=== PATIENT | male | born 1990 | race African-American/Black ===

== ENCOUNTER 2020-05-21 17:21 | Emergency (ER) | payer OTHER ==
[2020-05-21] MEDS ORDERED: Vancomycin 1 GM/200 ML BAG ONE (17:56)
[2020-05-21] MEDS ORDERED: Ketorolac Tromethamine 30 MG/ML VIAL ONE (17:57)
[2020-05-21] MEDS ORDERED: Morphine 4 MG/ML VIAL ONE ×2 (17:57→17:58)
[2020-05-21] MEDS ORDERED: Cefepime 2 GM VIAL ONE ×2 (17:58→18:02)
[2020-05-21 18:27] LABS: Hemoglobin 12.5 g/dL (14.0-18.0); Mean Corpuscular HGB CONC 31.4 g/dL (32.0-36.0); Mean Corpuscular Hemoglobin 25.8 pg (27.0-31.0); Mean Corpuscular Volume 82.2 fL (78.0-98.0); Mean Platelet Volume 6.3 fL (7.4-10.4); Platelet Count 526 thou/uL (130-400); RBC Distribution Width 14.4 % (11.5-14.5); Red Blood Cell (RBC) Count 4.85 mill/uL (4.70-6.10); White Blood Cell (WBC) Count 24.5 thou/uL (4.8-10.8)
--- NOTE | 2020-05-21 18:31 | RAD ---
Exam: Chest one view HISTORY:Pain. Comparison: 04/20/2019 FINDINGS: Cardiac silhouette: Normal Aorta: Unremarkable Pulmonary vessels: Normal Costophrenic angles: Clear LUNGS: No masses or consolidation. Probable 0.5 cm calcified granuloma in the right midlung, better d efined in the current exam. Pneumothorax: None Osseous abnormalities: None IMPRESSION: No acute cardiopulmonary process.
[2020-05-21 18:37] LABS: Band 4 % (5-11); Hypochromia SLIGHT = 6-15 cells (100X) (0-5/hpf); Lymphocytes 14 % (21-51); MDiff Complete? YES; Metamyelocyte 1 % (0-0); Monocytes 3 % (0-10); Neutrophil 78 % (42-75); Platelet Morphology Comment Appears Increased; Polychromasia SLIGHT = 2-3 cells (100X) (0-2/hpf)
[2020-05-21 18:55] LABS: ALT (SGPT) 15 U/L (8-55); AST (SGOT) 18 U/L (5-34); Albumin 3.4 g/dL (3.5-5.0); Alkaline Phosphatase 170 U/L (40-110); Anion Gap 16 mmol/L (10-20); BUN (Urea Nitrogen) 8 mg/dL (8.9-20.6); Bilirubin, Total 0.3 mg/dL (0.2-1.2); CK (CPK) 99 U/L (30-200); Calc. Creatinine Clearance 0 mL/min (70-130); Calcium 9.1 mg/dL (7.8-10.44); Carbon Dioxide 23 mmol/L (22-29); Chloride 99 mmol/L (98-107); Estimated GFR-MDRD Greater than 90; Globulin 5.9 g/dL (2.4-3.5); Glucose 111 mg/dL (70-105); Lipase 13 U/L (8-78); Potassium 3.4 mmol/L (3.5-5.1); Protein, Total 9.3 g/dL (6.0-8.3); Sodium 135 mmol/L (136-145)
[2020-05-21 21:22] LABS: Lactic Acid 1.2 mmol/L (0.5-2.2)
[2020-05-22 16:27] LABS: SARS-CoV-2 MS2 Positive; SARS-CoV-2 N Gene Negative; SARS-CoV-2 S Gene Negative; SARS-CoV-2 by NAA Not Detected (NotDetected); SARS-CoV-2 orf1ab Negative
== END 2020-05-22 00:23 | disposition short-term general hospital (02) ==
LOC: ERS 17:21
DX: L70.9 Acne, unspecified (principal)
CPT/HCPCS: 36415; 71045; 80053; 82550; 83605; 83690; 85025; 87040; 87635; 93005; 96365; 96366; 96367; 96375; J0692; J1885; J2270; J3370; U0003

== ENCOUNTER 2020-08-05 18:23 | Inpatient (IN) | payer OTHER ==
[2020-08-05] MEDS ORDERED: Acetaminophen 325 MG TAB PO PRN (19:45)
[2020-08-05] MEDS ORDERED: Sodium Chloride 0.9% 1,000 ML IV SCH ×2 (19:45→20:45)
[2020-08-05] MEDS ORDERED: Ondansetron ODT 4 MG TAB SL PRN (19:45)
[2020-08-05] MEDS ORDERED: Ondansetron PF 4 MG/2 ML Vial IVP PRN (19:45)
[2020-08-05] MEDS ORDERED: Vancomycin 1 GM in Premix Bag 1 BAG IVPB SCH (21:00)
[2020-08-05] MEDS: Nicotine 14 MG PATCH TD SCH ×2 (21:29→21:33)
[2020-08-05] MEDS: Morphine 4 MG/ML VIAL SLOW IVP PRN (21:29)
[2020-08-05] MEDS: Sodium Chloride 0.9% 1,000 ML IV SCH ×2 (21:31→23:19)
[2020-08-05] MEDS ORDERED: Cefepime 2 GM in Sodium Chloride 0.9% 100 ML IVPB SCH (22:00)
[2020-08-05] MEDS: Cefepime 2 GM in Sodium Chloride 0.9% 100 ML IVPB SCH (23:19)
--- NOTE | 2020-08-06 01:50 | PDOC.HHP ---
Hospitalist HPI - History of Present Illness History of Present Illness: ADMISSION DATE: 08/05/2020 TIME OF ASSESSMENT: 2099 PRIMARY CARE PHYSICIAN: Zee CHIEF COMPLAINT:painful sores HPI: Patient is a 29-year-old male past medical history significant for hypertension, hydradenitis suppurative, and schizophrenia. He presents to the ER for 3 days of worsening pain in his gluteus area was acute on chronic abscesses. He was borderline hypotensive and tachycardic upon arrival to ER. Patient recently been admitted for the same diagnosis earlier this month. Dermatology and infectious disease were consulted and started him on long-term antibiotics. He has not been compliant with his antibiotics recently and the sores have worsened. ED COURSE: Vital Signs: Blood pressure 107/57, respiratory rate 26, pulse 123, temp 98.7 oral, O2 sat 97% on room air Today in the ER they completed lab work, blood cultures, medication administration. Today they administered normal saline 2 L, Zofran 4 mg IV, morphine 4 mg IV x2 doses, vancomycin 1 g IV, cefepime 2 g IV. PAST MEDICAL HISTORY: Hydradenitis suppurative, bipolar, schizophrenic, ADD, hypertension PAST SURGICAL HISTORY: I&D of multiple abscesses SOCIAL HISTORY: Patient lives at home with his mother and brother. Patient denies alcohol or drugs. He states that he smokes occasionally when he has a bad flareup. FAMILY HISTORY: Mother and 4 siblings have hydradenitis also. Patient has 29 siblings, 10 of which are full siblings. ALLERGIES: No known drug allergies CURRENT MEDICATIONS: Mobic 7.5 mg p.o. daily Gabapentin 300 mg p.o. daily Hospitalist ROS - Review of Systems Skin: reports: lesions All other systems reviewed; all pertinent +/- noted in HPI/Subj - Medication Medications: Active Medications Generic Name Dose Route Start Last Admin Trade Name Freq PRN Reason Stop Dose Admin Cefepime HCl 2 gm/ Sodium 100 mls @ 200 mls/hr 08/05/20 23:00 08/05/20 23:19 Chloride IVPB 100 mls Q8H ROHAN Administration Sodium Chloride 1,000 mls @ 100 mls/hr 08/05/20 21:00 08/05/20 23:19 Normal Saline 0.9% IV 1,000 mls .Q10H ROHAN Administration Morphine Sulfate 4 mg 08/05/20 20:53 08/05/20 21:29 Morphine 4 Mg/Ml Vial SLOW IVP 4 mg Q4H PRN Administration Pain Nicotine 14 mg 08/05/20 20:45 08/05/20 21:33 Nicotine 14 Mg Patch TD Not Given Q24HR ROHAN - Exam General Appearance: NAD, awake alert Eye: PERRL Heart: RRR, no murmur, no gallops, no rubs, normal peripheral pulses Respiratory: CTAB, no wheezes, no rales, no ronchi, normal chest expansion Gastrointestinal: soft, non-tender, non-distended, normal bowel sounds Extremities: no edema Skin - other findings: dried skin lesions on chest, drainage from groin Psychiatric: normal affect, normal behavior, A&O x 3 Hospitalist H&P A/P - Plan Plan: Sepsis Repeat lactic acid, initial was 3.0 Continue IV fluid and IV antibiotics Await blood culture results from [facility] Continue to monitor vital signs Hidradenitis suppurativa exacerbation Continue IV antibiotics Wound care consultation Pain control Leukocytosisdue to worsening HS WBC count of 26.6 We will repeat labs in a.m. Remains afebrile at this time Tobacco abuse Nicotine patch available Schizophrenia/bipolar Restart home medications once reconciled VTE prophylaxis in place CODE STATUS: Full Surrogate decision maker is his mother Patient care been discussed with Dr. Zuñiga
[2020-08-06] MEDS: Vancomycin 1 GM in Premix Bag 1 BAG IVPB SCH ×2 (03:07→15:10)
[2020-08-06 03:11] LABS: Hemoglobin 10.4 g/dL (14.0-18.0); Mean Corpuscular HGB CONC 31.8 g/dL (32.0-36.0); Mean Corpuscular Hemoglobin 26.5 pg (27.0-31.0); Mean Corpuscular Volume 83.3 fL (78.0-98.0); Mean Platelet Volume 6.1 fL (7.4-10.4); Platelet Count 542 thou/uL (130-400); RBC Distribution Width 14.7 % (11.5-14.5); Red Blood Cell (RBC) Count 3.92 mill/uL (4.70-6.10); White Blood Cell (WBC) Count 22.5 thou/uL (4.8-10.8)
[2020-08-06] MEDS: Morphine 4 MG/ML VIAL SLOW IVP PRN ×4 (03:31→21:46)
[2020-08-06 03:55] LABS: Band 1 % (5-11); Eosinophils 2 % (0-10); Lymphocytes 20 % (21-51); MDiff Complete? YES; Monocytes 5 % (0-10); Neutrophil 72 % (42-75)
[2020-08-06 04:12] LABS: ALT (SGPT) 15 U/L (8-55); AST (SGOT) 17 U/L (5-34); Albumin 2.5 g/dL (3.5-5.0); Alkaline Phosphatase 227 U/L (40-110); Anion Gap 19 mmol/L (10-20); BUN (Urea Nitrogen) 11 mg/dL (8.9-20.6); Bilirubin, Total 0.3 mg/dL (0.2-1.2); Calc. Creatinine Clearance 141 mL/min (70-130); Calcium 8.5 mg/dL (7.8-10.44); Carbon Dioxide 17 mmol/L (22-29); Chloride 104 mmol/L (98-107); Globulin 6.2 g/dL (2.4-3.5); Glucose 101 mg/dL (70-105); Potassium 4.6 mmol/L (3.5-5.1); Protein, Total 8.7 g/dL (6.0-8.3); Sodium 135 mmol/L (136-145)
[2020-08-06] MEDS: Cefepime 2 GM in Sodium Chloride 0.9% 100 ML IVPB SCH ×3 (06:25→23:30)
[2020-08-06] MEDS: Sodium Chloride 0.9% 1,000 ML IV SCH ×2 (08:57→16:59)
[2020-08-06] MEDS: Gabapentin 300 MG CAP PO SCH ×2 (08:57→21:45)
[2020-08-06] MEDS: Meloxicam 7.5 MG TAB PO SCH ×2 (08:58→21:45)
[2020-08-06] MEDS ORDERED: Gabapentin 300 MG CAP PO SCH (09:00)
[2020-08-06 14:10] VITALS: BMI 22.2
--- NOTE | 2020-08-06 17:37 | PDOC.HOSPP ---
- Subjective Encounter Date: 08/06/20 Encounter Time: 10:00 Subjective: F/u: hidradenitis The patient is seen for follow up of HS. I saw him during his last admission, he was discharged on clindamycin and rifampin. He states he took these antibiotics but went to the ER two more times for worsening pain and discharge. After calling [facility], which is pharmacy I sent his medicines two, they stated that he never picked up his clindamycin and rifampin. The patient states he "forgot." He states he took something else that he had in his house instead. He also states he never saw the construction carpenters helper as scheduled because his mom was unable to drive him to [place] On 07/30, patient had gone to [place] [facility] and was prescribed clindamycin which he has been taking since 07/30. His last dose taking it was two days ago. Currently the patient has worsening wounds on his chest which are foul smelling. He also has pain with walking. He states he did not see the construction carpenters helper - Objective Vital Signs & Weight: Vital Signs (12 hours) Temp Pulse Resp BP Pulse Ox 08/06/20 16:00 99.3 F 85 14 106/71 96 08/06/20 12:00 99 08/06/20 11:59 100.2 F H 94 14 109/73 99 08/06/20 08:00 99.3 F 96 14 121/73 96 Weight Admit Weight 150 lb Weight 159 lb 6.4 oz I&O: 08/05/20 08/06/20 08/07/20 06:59 06:59 06:59 Output Total 1100 Balance -1100 Result Diagrams: 08/06/20 Unknown 08/06/20 Unknown Hospitalist ROS - Review of Systems Constitutional: denies: fever, chills - Medication Medications: Active Medications Generic Name Dose Route Start Last Admin Trade Name Freq PRN Reason Stop Dose Admin Gabapentin 300 mg 08/06/20 09:00 08/06/20 08:57 Gabapentin 300 Mg Cap PO 300 mg QAM ROHAN Administration Vancomycin HCl 1 gm/ Device 200 mls @ 200 mls/hr 08/06/20 03:00 08/06/20 15:10 IVPB 200 mls Q12H ROHAN Administration Cefepime HCl 2 gm/ Sodium 100 mls @ 200 mls/hr 08/05/20 23:00 08/06/20 15:08 Chloride IVPB 100 mls Q8H ROHAN Administration Sodium Chloride 1,000 mls @ 100 mls/hr 08/05/20 21:00 08/06/20 16:59 Normal Saline 0.9% IV Not Given .Q10H ROHAN Meloxicam 22.5 mg 08/06/20 09:00 08/06/20 08:58 Meloxicam 7.5 Mg Tab PO 22.5 mg QAM ROHAN Administration Morphine Sulfate 4 mg 08/05/20 20:53 08/06/20 16:59 Morphine 4 Mg/Ml Vial SLOW IVP 4 mg Q4H PRN Administration Pain Nicotine 14 mg 08/05/20 20:45 08/05/20 21:33 Nicotine 14 Mg Patch TD Not Given Q24HR ROHAN - Exam General Appearance: NAD, awake alert Eye: PERRL, anicteric sclera ENT: normocephalic atraumatic, no oropharyngeal lesions Neck: no JVD Heart: RRR, no murmur, no gallops, no rubs Respiratory: CTAB, no wheezes, no rales, no ronchi Gastrointestinal: soft, non-tender, non-distended, normal bowel sounds, no splenomegaly Extremities: no cyanosis, no clubbing, no edema Skin: normal turgor, no lesions, no rashes Skin - other findings: extensive HS lesions, but purulent ones noted on the chest, foul smelling Musculoskeletal: normal tone, normal strength, no muscle wasting Psychiatric: normal affect, normal behavior, A&O x 3, oriented to person Hosp A/P - Plan Consults: other 29-year-old male presented to the hospital with hidradenitis suppurativa exacerbation. Is recently discharged from the hospital on 07/24 and did not machine pecan picker his prescriptions as prescribed. Hidradenitis suppurativa exacerbation - from noncompliance - was recently discharged on clindamycin and rifampin 07/24 and topical clindamycin but did not machine pecan picker his medicines. He resumed clindamycin on 07/30 - WBC is 22.5. Will continue vanc, cefepime for now. Recheck wound culture - will likely need to be on humira again upon discharge. Will place PT order Leukocytosis- due to worsening HS - WBC 22, will repeat CBC tomorrow after antibiotics Schizophrenia/Bipolar - continue abilify
[2020-08-06] MEDS ORDERED: CLINDAMYCIN 1% TOP SCH (21:00)
[2020-08-06] MEDS: Nicotine 14 MG PATCH TD SCH (21:50)
[2020-08-07] MEDS: Sodium Chloride 0.9% 1,000 ML IV SCH ×3 (02:09→23:12)
[2020-08-07] MEDS: Vancomycin 1 GM in Premix Bag 1 BAG IVPB SCH ×3 (02:09→22:21)
[2020-08-07 05:52] LABS: Anion Gap 14 mmol/L (10-20); BUN (Urea Nitrogen) 7 mg/dL (8.9-20.6); Calc. Creatinine Clearance 161 mL/min (70-130); Calcium 8.6 mg/dL (7.8-10.44); Carbon Dioxide 23 mmol/L (22-29); Chloride 102 mmol/L (98-107); Glucose 82 mg/dL (70-105); Sodium 135 mmol/L (136-145)
[2020-08-07] MEDS: Cefepime 2 GM in Sodium Chloride 0.9% 100 ML IVPB SCH ×3 (06:50→23:12)
[2020-08-07] MEDS: Morphine 4 MG/ML VIAL SLOW IVP PRN ×5 (06:53→23:12)
[2020-08-07 07:03] LABS: Band 12 % (5-11); Hemoglobin 9.6 g/dL (14.0-18.0); Lymphocytes 10 % (21-51); MDiff Complete? YES; Mean Corpuscular HGB CONC 32.2 g/dL (32.0-36.0); Mean Corpuscular Volume 83.8 fL (78.0-98.0); Mean Platelet Volume 6.1 fL (7.4-10.4); Monocytes 5 % (0-10); Neutrophil 73 % (42-75); Platelet Count 495 thou/uL (130-400); RBC Distribution Width 14.5 % (11.5-14.5); Red Blood Cell (RBC) Count 3.56 mill/uL (4.70-6.10); White Blood Cell (WBC) Count 24.7 thou/uL (4.8-10.8)
[2020-08-07] MEDS: Meloxicam 7.5 MG TAB PO SCH ×2 (09:43→20:21)
[2020-08-07] MEDS: Gabapentin 300 MG CAP PO SCH ×2 (09:44→20:21)
[2020-08-07 14:55] LABS: Vancomycin, Trough 6.8 ug/mL
--- NOTE | 2020-08-07 14:58 | PDOC.HOSPP ---
- Subjective Encounter Date: 08/07/20 Encounter Time: 10:00 Subjective: F/u : hidradenitis The patient states he feels a little better but is still in a lot of pain when he stands up. His pain is relieved with not moving. He is asking for pain medicine. Discussed with patient about possibly going to rehab, since he has trouble with compliance and keeping his appointments and he seemed agreeable - Objective Vital Signs & Weight: Vital Signs (12 hours) Temp Pulse Resp BP Pulse Ox 08/07/20 11:33 99.0 F 86 16 100/66 100 08/07/20 08:00 98 08/07/20 07:33 99.0 F 72 14 102/69 98 08/07/20 03:50 98.8 F 69 19 95/62 98 Weight Admit Weight 150 lb Weight 159 lb 6.4 oz I&O: 08/06/20 08/07/20 08/08/20 06:59 06:59 06:59 Intake Total 2480 Output Total 1100 3900 Balance -1100 -1420 Result Diagrams: 08/07/20 04:59 08/07/20 04:59 Hospitalist ROS - Review of Systems Constitutional: denies: fever, chills - Medication Medications: Active Medications Generic Name Dose Route Start Last Admin Trade Name Freq PRN Reason Stop Dose Admin Gabapentin 300 mg 08/06/20 09:00 08/07/20 09:44 Gabapentin 300 Mg Cap PO 300 mg QAM ROHAN Administration Gabapentin 600 mg 08/06/20 21:00 08/06/20 21:45 Gabapentin 300 Mg Cap PO 600 mg QPM ROHAN Administration Cefepime HCl 2 gm/ Sodium 100 mls @ 200 mls/hr 08/05/20 23:00 08/07/20 14:46 Chloride IVPB 100 mls Q8H ROHAN Administration Sodium Chloride 1,000 mls @ 100 mls/hr 08/05/20 21:00 08/07/20 14:47 Normal Saline 0.9% IV 1,000 mls .Q10H ROHAN Administration Vancomycin HCl 1 gm/ Device 200 mls @ 200 mls/hr 08/07/20 03:00 08/07/20 14:46 IVPB 200 mls 0300,1500 ROHAN Administration Meloxicam 15 mg 08/06/20 21:00 08/06/20 21:45 Meloxicam 7.5 Mg Tab PO 15 mg HS ROHAN Administration Meloxicam 22.5 mg 08/06/20 09:00 08/07/20 09:43 Meloxicam 7.5 Mg Tab PO 22.5 mg QAM ROHAN Administration Morphine Sulfate 4 mg 08/05/20 20:53 08/07/20 14:49 Morphine 4 Mg/Ml Vial SLOW IVP 4 mg Q4H PRN Administration Pain Nicotine 14 mg 08/05/20 20:45 08/06/20 21:50 Nicotine 14 Mg Patch TD Not Given Q24HR ROHAN - Exam General Appearance: NAD, awake alert Eye: anicteric sclera ENT: normocephalic atraumatic, no oropharyngeal lesions Neck: no JVD Heart: RRR, no murmur, no gallops, no rubs Respiratory: CTAB, no wheezes, no rales, no ronchi Gastrointestinal: soft, non-tender, non-distended, normal bowel sounds, no palpable masses Extremities: no cyanosis, no clubbing, no edema Skin: normal turgor, no lesions, no rashes Hosp A/P - Plan 29-year-old male presented to the hospital with hidradenitis suppurativa exacerbation. Is recently discharged from the hospital on 07/24 and did not pick up and delivery driver his prescriptions as prescribed. #Hidradenitis suppurativa exacerbation - from noncompliance #Leukocytosis - was recently discharged on clindamycin and rifampin 07/24 and topical clindamycin but did not pick up and delivery driver his medicines. He resumed clindamycin on 07/30 - WBC is 24 but wounds appear to have improved with less purulence. Will continue IV antibiotics for now - will try to contact his learning design specialist to see if they can schedule a tele-visit with him in the hospital #Schizophrenia/Bipolar - continue abilify
[2020-08-07] MEDS: Mupirocin 2% Ointment 22 GM Tube TOP SCH ×2 (16:19→20:22)
[2020-08-07] MEDS: HYDROcodone/Acetaminophen 5/325 mg Tablet PO PRN ×2 (16:20→20:26)
[2020-08-07] MEDS ORDERED: Ondansetron ODT 4 MG TAB PO PRN (17:20)
[2020-08-07] MEDS: Nicotine 14 MG PATCH TD SCH (20:41)
[2020-08-08] MEDS: Morphine 4 MG/ML VIAL SLOW IVP PRN ×4 (05:38→22:17)
[2020-08-08] MEDS: Vancomycin 1 GM in Premix Bag 1 BAG IVPB SCH ×3 (05:38→22:07)
[2020-08-08 06:12] LABS: Anion Gap 12 mmol/L (10-20); BUN (Urea Nitrogen) 7 mg/dL (8.9-20.6); Calc. Creatinine Clearance 154 mL/min (70-130); Calcium 8.5 mg/dL (7.8-10.44); Carbon Dioxide 29 mmol/L (22-29); Chloride 101 mmol/L (98-107); Glucose 86 mg/dL (70-105); Potassium 4.4 mmol/L (3.5-5.1); Sodium 138 mmol/L (136-145)
[2020-08-08] MEDS: Cefepime 2 GM in Sodium Chloride 0.9% 100 ML IVPB SCH ×3 (07:01→23:57)
[2020-08-08] MEDS: Gabapentin 300 MG CAP PO SCH ×2 (09:29→20:07)
[2020-08-08] MEDS: Meloxicam 7.5 MG TAB PO SCH ×2 (09:30→20:08)
[2020-08-08] MEDS: Mupirocin 2% Ointment 22 GM Tube TOP SCH ×3 (09:31→20:09)
[2020-08-08] MEDS: Sodium Chloride 0.9% 1,000 ML IV SCH ×2 (09:31→22:08)
[2020-08-08] MEDS: HYDROcodone/Acetaminophen 5/325 mg Tablet PO PRN (09:39)
[2020-08-08 10:43] LABS: Hemoglobin 9.5 g/dL (14.0-18.0); Mean Corpuscular HGB CONC 30.8 g/dL (32.0-36.0); Mean Corpuscular Hemoglobin 26.3 pg (27.0-31.0); Mean Corpuscular Volume 85.4 fL (78.0-98.0); Platelet Count 465 thou/uL (130-400); RBC Distribution Width 14.5 % (11.5-14.5); Red Blood Cell (RBC) Count 3.62 mill/uL (4.70-6.10); White Blood Cell (WBC) Count 19.6 thou/uL (4.8-10.8)
[2020-08-08] MEDS ORDERED: Polyethylene Glycol 3350 17 GM Packet PO PRN (11:42)
[2020-08-08] MEDS ORDERED: Docusate 100 MG CAP PO SCH (12:00)
[2020-08-08] MEDS: HYDROcodone/Acetaminophen 10/325 mg Tablet PO PRN ×3 (12:48→23:56)
[2020-08-08 14:03] LABS: Vancomycin, Trough 14.5 ug/mL
--- NOTE | 2020-08-08 16:33 | PDOC.HOSPP ---
- Subjective Encounter Date: 08/08/20 Encounter Time: 10:00 Subjective: F/u: hidradenitis suppurative The patient still has significant pain while ambulating and can't move much due to the pain. Per nursing, norco 5 was not adequate enough His wounds are starting to dry up - Objective Vital Signs & Weight: Vital Signs (12 hours) Temp Pulse Resp BP Pulse Ox 08/08/20 15:35 98.4 F 76 14 101/63 98 08/08/20 11:23 98.3 F 95 14 112/71 99 08/08/20 08:01 98.7 F 73 16 100/65 99 08/08/20 08:00 99 Weight Admit Weight 150 lb Weight 159 lb 6.4 oz I&O: 08/07/20 08/08/20 08/09/20 06:59 06:59 06:59 Intake Total 2480 4260 Output Total 3900 2225 Balance -1420 2035 Result Diagrams: 08/08/20 10:05 08/08/20 05:24 Hospitalist ROS - Medication Medications: Active Medications Generic Name Dose Route Start Last Admin Trade Name Freq PRN Reason Stop Dose Admin Hydrocodone Bitart/Acetaminophen 1 tab 08/08/20 11:36 08/08/20 12:48 Hydrocodone/Acetaminophen 10/325 Mg Tablet PO 1 tab Q4H PRN Administration Severe Pain (7-10) Gabapentin 300 mg 08/06/20 09:00 08/08/20 09:29 Gabapentin 300 Mg Cap PO 300 mg QAM ROHAN Administration Gabapentin 600 mg 08/06/20 21:00 08/07/20 20:21 Gabapentin 300 Mg Cap PO 600 mg QPM ROHAN Administration Cefepime HCl 2 gm/ Sodium 100 mls @ 200 mls/hr 08/05/20 23:00 08/08/20 14:47 Chloride IVPB 100 mls Q8H ROHAN Administration Sodium Chloride 1,000 mls @ 100 mls/hr 08/05/20 21:00 08/08/20 09:31 Normal Saline 0.9% IV Not Given .Q10H ROHAN Vancomycin HCl 1 gm/ Device 200 mls @ 200 mls/hr 08/07/20 22:00 08/08/20 12:49 IVPB 200 mls Q8HR ROHAN Administration Meloxicam 15 mg 08/06/20 21:00 08/07/20 20:21 Meloxicam 7.5 Mg Tab PO 15 mg HS ROHAN Administration Meloxicam 22.5 mg 08/06/20 09:00 08/08/20 09:30 Meloxicam 7.5 Mg Tab PO 22.5 mg QAM ROHAN Administration Morphine Sulfate 4 mg 08/05/20 20:53 08/08/20 14:07 Morphine 4 Mg/Ml Vial SLOW IVP 4 mg Q4H PRN Administration Pain Mupirocin 0 gm 08/07/20 15:00 08/08/20 14:48 Mupirocin 2% Ointment 22 Gm Tube TOP 1 applic TID ROHAN Administration Nicotine 14 mg 08/05/20 20:45 08/07/20 20:41 Nicotine 14 Mg Patch TD Not Given Q24HR ROHAN Polyethylene Glycol 17 gm 08/08/20 11:42 08/08/20 12:48 Polyethylene Glycol 3350 17 Gm Packet PO 17 gm DAILYPRN PRN Administration Constipation - Exam General Appearance: NAD, awake alert Eye: PERRL ENT: normocephalic atraumatic, no oropharyngeal lesions Neck: no JVD Heart: RRR, no murmur, no gallops, no rubs Respiratory: CTAB, no wheezes, no rales, no ronchi Gastrointestinal: soft, non-tender, non-distended, normal bowel sounds Extremities: no cyanosis, no clubbing, no edema Skin: normal turgor, no lesions, no rashes Neurological: cranial nerve grossly intact, normal sensation to touch, no weakness Musculoskeletal: normal tone, normal strength, no muscle wasting Psychiatric: normal affect, normal behavior, A&O x 3 Hosp A/P - Plan 29-year-old male presented to the hospital with hidradenitis suppurativa exacerbation. Is recently discharged from the hospital on 07/24 and did not pickle pumper his prescriptions as prescribed. #Hidradenitis suppurativa exacerbation - from noncompliance #Leukocytosis - was recently discharged on clindamycin and rifampin 07/24 and topical clindamycin but did not pickle pumper his medicines. He resumed clindamycin on 07/30 - WBC has improved to 19.6. Wound culture growing gram negative rods, will f/u final cultures - continue vanc and cefepime pending culture results. Continue topical mupirocin. Content Checker at [facility] only able to do in person appointments. Appt made for patient 08/13 at 9:40 am #Schizophrenia/Bipolar - continue mag
[2020-08-08] MEDS: Docusate 100 MG CAP PO SCH (20:08)
[2020-08-08] MEDS: Nicotine 14 MG PATCH TD SCH (20:08)
[2020-08-09] MEDS: Morphine 4 MG/ML VIAL SLOW IVP PRN ×4 (02:12→20:39)
[2020-08-09] MEDS: HYDROcodone/Acetaminophen 10/325 mg Tablet PO PRN ×3 (05:22→22:28)
[2020-08-09] MEDS: Sodium Chloride 0.9% 1,000 ML IV SCH (05:22)
[2020-08-09] MEDS: Vancomycin 1 GM in Premix Bag 1 BAG IVPB SCH (05:22)
[2020-08-09 06:42] LABS: BUN (Urea Nitrogen) 7 mg/dL (8.9-20.6); Calc. Creatinine Clearance 156 mL/min (70-130); Calcium 8.1 mg/dL (7.8-10.44); Chloride 100 mmol/L (98-107); Glucose 105 mg/dL (70-105); Potassium 4.5 mmol/L (3.5-5.1); Sodium 135 mmol/L (136-145)
[2020-08-09 07:07] LABS: Carbon Dioxide 22 mmol/L (22-29)
[2020-08-09] MEDS: Cefepime 2 GM in Sodium Chloride 0.9% 100 ML IVPB SCH (07:28)
[2020-08-09 08:30] LABS: Anion Gap 18 mmol/L (10-20)
[2020-08-09] MEDS ORDERED: Cefdinir 300 MG CAP PO SCH (09:30)
[2020-08-09 09:53] LABS: Hemoglobin 9.7 g/dL (14.0-18.0); Mean Corpuscular HGB CONC 31.9 g/dL (32.0-36.0); Mean Corpuscular Hemoglobin 26.4 pg (27.0-31.0); Mean Corpuscular Volume 82.9 fL (78.0-98.0); Mean Platelet Volume 5.9 fL (7.4-10.4); Platelet Count 477 thou/uL (130-400); RBC Distribution Width 14.4 % (11.5-14.5); Red Blood Cell (RBC) Count 3.67 mill/uL (4.70-6.10); White Blood Cell (WBC) Count 20.9 thou/uL (4.8-10.8)
[2020-08-09] MEDS: Docusate 100 MG CAP PO SCH ×2 (09:55→20:39)
[2020-08-09] MEDS: Gabapentin 300 MG CAP PO SCH ×2 (09:56→20:40)
[2020-08-09] MEDS: Meloxicam 7.5 MG TAB PO SCH ×2 (09:56→20:40)
[2020-08-09] MEDS: Mupirocin 2% Ointment 22 GM Tube TOP SCH ×3 (09:57→20:43)
[2020-08-09] MEDS: Rifampin 300 MG CAP PO SCH ×2 (09:59→22:28)
--- NOTE | 2020-08-09 18:26 | PDOC.HOSPP ---
- Subjective Encounter Date: 08/09/20 Encounter Time: 11:00 Subjective: F/u :HS THe patient complains of drainage from lesions on his butt area. Lesions on his chest have improved some . He reports 10/10 pain. I tried to call the pain clinic but they were closed today. PCP office yesterday had not made pain management referral yet, but patient states that his mom called and said it won't kick until the New Years - Objective Vital Signs & Weight: Vital Signs (12 hours) Temp Pulse Resp BP Pulse Ox 08/09/20 14:52 98.3 F 70 18 126/82 99 08/09/20 11:25 98.3 F 74 18 104/63 98 08/09/20 07:12 98.6 F 65 18 110/72 100 Weight Admit Weight 150 lb Weight 159 lb 6.4 oz I&O: 08/08/20 08/09/20 08/10/20 06:59 06:59 06:59 Intake Total 4260 4100 Output Total 2225 2525 Balance 2035 1575 Result Diagrams: 08/09/20 09:24 08/09/20 05:37 Hospitalist ROS - Review of Systems Constitutional: denies: fever, chills - Medication Medications: Active Medications Generic Name Dose Route Start Last Admin Trade Name Freq PRN Reason Stop Dose Admin Hydrocodone Bitart/Acetaminophen 1 tab 08/08/20 11:36 08/09/20 05:22 Hydrocodone/Acetaminophen 10/325 Mg Tablet PO 1 tab Q4H PRN Administration Severe Pain (7-10) Docusate Sodium 100 mg 08/08/20 21:00 08/09/20 09:55 Docusate 100 Mg Cap PO 100 mg BID ROHAN Administration Gabapentin 300 mg 08/06/20 09:00 08/09/20 09:56 Gabapentin 300 Mg Cap PO 300 mg QAM ROHAN Administration Gabapentin 600 mg 08/06/20 21:00 08/08/20 20:07 Gabapentin 300 Mg Cap PO 600 mg QPM ROHAN Administration Meloxicam 15 mg 08/06/20 21:00 08/08/20 20:08 Meloxicam 7.5 Mg Tab PO 15 mg HS ROHNA Administration Meloxicam 22.5 mg 08/06/20 09:00 08/09/20 09:56 Meloxicam 7.5 Mg Tab PO 22.5 mg QAM ROHAN Administration Morphine Sulfate 4 mg 08/05/20 20:53 08/09/20 15:18 Morphine 4 Mg/Ml Vial SLOW IVP 4 mg Q4H PRN Administration Pain Mupirocin 0 gm 08/07/20 15:00 08/09/20 15:21 Mupirocin 2% Ointment 22 Gm Tube TOP 1 applic TID ROHAN Administration Nicotine 14 mg 08/05/20 20:45 08/08/20 20:08 Nicotine 14 Mg Patch TD Not Given Q24HR ROHAN Polyethylene Glycol 17 gm 08/08/20 11:42 08/08/20 12:48 Polyethylene Glycol 3350 17 Gm Packet PO 17 gm DAILYPRN PRN Administration Constipation Rifampin 300 mg 08/09/20 10:00 08/09/20 09:59 Rifampin 300 Mg Cap PO Not Given 1000,2200 [facility] - Exam General Appearance: NAD, awake alert Eye: PERRL, anicteric sclera ENT: normocephalic atraumatic, no oropharyngeal lesions Neck: no JVD Heart: RRR, no murmur, no gallops, no rubs Respiratory: CTAB, no wheezes, no rales, no ronchi Gastrointestinal: soft, non-tender, non-distended, normal bowel sounds Extremities: no cyanosis, no clubbing, no edema Hosp A/P - Plan 29-year-old male presented to the hospital with hidradenitis suppurativa exacerbation. Is recently discharged from the hospital on 07/24 and did not pepper picker his prescriptions as prescribed. #Hidradenitis suppurativa exacerbation - from noncompliance #Proteus mirabilis infection #Leukocytosis - secondary to HS exacerbation - was recently discharged on clindamycin and rifampin 07/24 and topical clindamycin but did not pepper picker his medicines. He resumed clindamycin on 07/30. He was started on vancomycin and cefepime on admission - WBC improved to 20. Wound culture growing Proteus mirabilis. Will switch to oral cefdinir and rifampin - continue topical mupirocin. Appt made for oven dauber on 08/13 at 9:40 am. Pain management clinic I was unable to get a hold of, but will place consult Proteus cellulitis - will switch antibiotics to cefdinir #Schizophrenia/Bipolar - continue abilify
[2020-08-09] MEDS: Cefdinir 300 MG CAP PO SCH (20:40)
[2020-08-09] MEDS: Nicotine 14 MG PATCH TD SCH (20:44)
[2020-08-10] MEDS: Morphine 4 MG/ML VIAL SLOW IVP PRN ×3 (07:37→15:44)
[2020-08-10] MEDS: Rifampin 300 MG CAP PO SCH ×2 (07:38→22:52)
[2020-08-10] MEDS: Meloxicam 7.5 MG TAB PO SCH ×2 (07:38→20:56)
[2020-08-10] MEDS: Gabapentin 300 MG CAP PO SCH ×2 (07:39→20:57)
[2020-08-10] MEDS: Mupirocin 2% Ointment 22 GM Tube TOP SCH ×3 (07:44→20:57)
[2020-08-10] MEDS: Docusate 100 MG CAP PO SCH ×2 (07:44→20:56)
[2020-08-10] MEDS: Cefdinir 300 MG CAP PO SCH ×2 (09:07→20:56)
[2020-08-10] MEDS: HYDROcodone/Acetaminophen 10/325 mg Tablet PO PRN ×2 (09:07→13:09)
[2020-08-10 09:47] LABS: Hemoglobin 10.4 g/dL (14.0-18.0); Mean Corpuscular HGB CONC 31.3 g/dL (32.0-36.0); Mean Corpuscular Hemoglobin 25.8 pg (27.0-31.0); Mean Corpuscular Volume 82.2 fL (78.0-98.0); Mean Platelet Volume 6.2 fL (7.4-10.4); Platelet Count 492 thou/uL (130-400); RBC Distribution Width 14.4 % (11.5-14.5); Red Blood Cell (RBC) Count 4.03 mill/uL (4.70-6.10); White Blood Cell (WBC) Count 18.8 thou/uL (4.8-10.8)
--- NOTE | 2020-08-10 14:52 | PDOC.HOSPP ---
- Subjective Encounter Date: 08/10/20 Encounter Time: 12:00 Subjective: F/u:HS Lesions on chest are drying up The patient walked today for the first time. Reports severe pain after walking. He states the norco helps at rest but doesnt help when he goes for a walk. He mostly lays in bed and tries not to move He wants a trial of walking one more day before going home - Objective Vital Signs & Weight: Vital Signs (12 hours) Temp Pulse Resp BP Pulse Ox 08/10/20 11:27 98.4 F 63 16 101/67 99 08/10/20 07:49 98.6 F 69 14 109/70 97 08/10/20 03:09 98.1 F 68 14 101/66 98 Weight Admit Weight 150 lb Weight 159 lb 6.4 oz I&O: 08/09/20 08/10/20 08/11/20 06:59 06:59 06:59 Intake Total 4100 720 1440 Output Total 2525 975 Balance 1575 -255 1440 Result Diagrams: 08/10/20 09:22 08/09/20 05:37 Hospitalist ROS - Review of Systems Constitutional: denies: fever, chills - Medication Medications: Active Medications Generic Name Dose Route Start Last Admin Trade Name Freq PRN Reason Stop Dose Admin Hydrocodone Bitart/Acetaminophen 1 tab 08/08/20 11:36 08/10/20 13:09 Hydrocodone/Acetaminophen 10/325 Mg Tablet PO 1 tab Q4H PRN Administration Severe Pain (7-10) Cefdinir 300 mg 08/09/20 21:00 08/10/20 09:07 Cefdinir 300 Mg Cap PO 300 mg BID ROHAN Administration Docusate Sodium 100 mg 08/08/20 21:00 08/10/20 07:44 Docusate 100 Mg Cap PO Not Given BID ROHAN Gabapentin 300 mg 08/06/20 09:00 08/10/20 07:39 Gabapentin 300 Mg Cap PO 300 mg QAM ROHAN Administration Gabapentin 600 mg 08/06/20 21:00 08/09/20 20:40 Gabapentin 300 Mg Cap PO 600 mg QPM ROHAN Administration Meloxicam 15 mg 08/06/20 21:00 08/09/20 20:40 Meloxicam 7.5 Mg Tab PO 15 mg HS ROHAN Administration Meloxicam 22.5 mg 08/06/20 09:00 08/10/20 07:38 Meloxicam 7.5 Mg Tab PO 22.5 mg QAM ROHAN Administration Morphine Sulfate 4 mg 08/05/20 20:53 08/10/20 11:55 Morphine 4 Mg/Ml Vial SLOW IVP 4 mg Q4H PRN Administration Pain Mupirocin 0 gm 08/07/20 15:00 08/10/20 07:44 Mupirocin 2% Ointment 22 Gm Tube TOP 1 applic TID ROHAN Administration Nicotine 14 mg 08/05/20 20:45 08/09/20 20:44 Nicotine 14 Mg Patch TD Not Given Q24HR ROHAN Polyethylene Glycol 17 gm 08/08/20 11:42 08/08/20 12:48 Polyethylene Glycol 3350 17 Gm Packet PO 17 gm DAILYPRN PRN Administration Constipation Rifampin 300 mg 08/09/20 10:00 08/10/20 07:38 Rifampin 300 Mg Cap PO 300 mg 1000,2200 ROHAN Administration - Exam General Appearance: NAD, awake alert Eye: PERRL, anicteric sclera ENT: normocephalic atraumatic, no oropharyngeal lesions Neck: no JVD Heart: RRR Respiratory: no rales Gastrointestinal: non-distended Extremities: no edema Skin - other findings: multiple HS lesions, dried on abdomen and legs. Starting to dry on chest Neurological: negative: normal sensation to touch Hosp A/P - Plan 29-year-old male presented to the hospital with hidradenitis suppurativa exac erbation. He was recently discharged from the hospital on 07/24 with clindamycin and rifampin and did not picker packer his prescriptions as prescribed. Subsequently went to the ER in [place] and had been taking clindamycin 07/30 without relief and came to the ER here. #Hidradenitis suppurativa exacerbation - from noncompliance #Proteus mirabilis infection #Leukocytosis - secondary to HS exacerbation - He was started on vancomycin and cefepime on admission. WBC improved to 18, wound culture growing Proteus mirabilis. Continue oral cefdinir and rifampin . Switch to clindamycin and rifampin on discharge once proteus infection has been treated - continue topical mupirocin in substitution for topical clindamycin - Appt made for paint trimmer pipe bowls on 08/13 at 9:40 am in [place], [place] hopefully can be discharged by then . He will likely need humira as an outpatient as well #Chronic pain from HS - patient was getting 10/325 q4 prn with no relief when he walks. Will trial oxycodone 5 mg q4 hour pain. Called PCP office again about pain management refe rral, which they had not made yet #Schizophrenia/Bipolar - continue abilify
[2020-08-10] MEDS ORDERED: Gabapentin 300 MG CAP PO SCH (17:45)
[2020-08-10] MEDS: oxyCODONE 5 MG TAB PO PRN ×2 (18:13→22:52)
[2020-08-10] MEDS: Nicotine 14 MG PATCH TD SCH (20:57)
[2020-08-11] MEDS: oxyCODONE 5 MG TAB PO PRN ×4 (03:40→21:37)
[2020-08-11] MEDS: Cefdinir 300 MG CAP PO SCH ×3 (09:39→21:40)
[2020-08-11] MEDS: Docusate 100 MG CAP PO SCH ×3 (09:39→22:59)
[2020-08-11] MEDS: Gabapentin 300 MG CAP PO SCH ×2 (09:39→21:35)
[2020-08-11] MEDS: Meloxicam 7.5 MG TAB PO SCH ×2 (09:41→21:36)
[2020-08-11] MEDS: Mupirocin 2% Ointment 22 GM Tube TOP SCH ×3 (09:43→21:41)
[2020-08-11] MEDS: Rifampin 300 MG CAP PO SCH ×2 (09:43→21:41)
--- NOTE | 2020-08-11 10:45 | PDOC.HOSPP ---
- Subjective Encounter Date: 08/11/20 Encounter Time: 10:30 Subjective: f/u for hidradenitis suppurativa receiving Rifampin/Omnicef. States he has reflux from the antibiotics. Not walking much or getting out of bed. - Objective Vital Signs & Weight: Vital Signs (12 hours) Temp Pulse Resp BP Pulse Ox 08/11/20 07:19 98.6 F 80 18 105/68 98 08/11/20 04:30 98.4 F 75 19 114/73 98 08/10/20 23:13 98.4 F 70 20 112/74 99 Weight Admit Weight 150 lb Weight 159 lb 6.4 oz I&O: 08/10/20 08/11/20 08/12/20 06:59 06:59 06:59 Intake Total 720 2220 240 Output Total 975 1600 Balance -255 620 240 Result Diagrams: 08/10/20 09:22 08/09/20 05:37 Additional Labs: Microbiology 08/06/20 19:07 Chest Bacterial Culture - Final Proteus mirabilis Hospitalist ROS - Medication Medications: Active Medications Generic Name Dose Route Start Last Admin Trade Name Freq PRN Reason Stop Dose Admin Cefdinir 300 mg 08/09/20 21:00 08/11/20 09:39 Cefdinir 300 Mg Cap PO Not Given BID ROHAN Docusate Sodium 100 mg 08/08/20 21:00 08/11/20 09:39 Docusate 100 Mg Cap PO 100 mg BID ROHAN Administration Gabapentin 600 mg 08/06/20 21:00 08/10/20 20:57 Gabapentin 300 Mg Cap PO 600 mg QPM ROHAN Administration Gabapentin 300 mg 08/11/20 09:00 08/11/20 09:39 Gabapentin 300 Mg Cap PO 300 mg DAILY ROHAN Administration Meloxicam 15 mg 08/06/20 21:00 08/10/20 20:56 Meloxicam 7.5 Mg Tab PO 15 mg HS ROHAN Administration Meloxicam 22.5 mg 08/06/20 09:00 08/11/20 09:41 Meloxicam 7.5 Mg Tab PO 22.5 mg QAM ROHAN Administration Morphine Sulfate 4 mg 08/05/20 20:53 08/10/20 15:44 Morphine 4 Mg/Ml Vial SLOW IVP 4 mg Q4H PRN Administration Pain Mupirocin 0 gm 08/07/20 15:00 08/11/20 09:43 Mupirocin 2% Ointment 22 Gm Tube TOP 1 applic TID ROHAN Administration Nicotine 14 mg 08/05/20 20:45 08/10/20 20:57 Nicotine 14 Mg Patch TD Not Given Q24HR ROHAN Oxycodone HCl 5 mg 08/10/20 14:46 08/11/20 03:40 Oxycodone 5 Mg Tab PO 5 mg Q4H PRN Administration Severe Pain (7-10) Polyethylene Glycol 17 gm 08/08/20 11:42 08/08/20 12:48 Polyethylene Glycol 3350 17 Gm Packet PO 17 gm DAILYPRN PRN Administration Constipation Rifampin 300 mg 08/09/20 10:00 08/11/20 09:43 Rifampin 300 Mg Cap PO Not Given 1000,2200 [facility] - Exam General Appearance: NAD, awake alert Eye: PERRL, anicteric sclera ENT: normocephalic atraumatic, no oropharyngeal lesions Neck: supple, symmetric, no JVD, no thyromegaly, no lymphadenopathy Heart: RRR, no murmur, no gallops, no rubs, normal peripheral pulses Heart - other findings: S1, S2 Respiratory: CTAB, no wheezes, no rales, no ronchi, normal chest expansion, no tachypnea Gastrointestinal: soft, non-tender, non-distended, normal bowel sounds, no palpable masses Extremities: no cyanosis, no clubbing Skin - other findings: multiple areas of dried lesions on chest/abd/groin Neurological: cranial nerve grossly intact, no new deficit Musculoskeletal: normal tone, normal strength Psychiatric: A&O x 3, flat affect Hosp A/P (1) Hidradenitis suppurativa Code(s): L73.2 - HIDRADENITIS SUPPURATIVA Status: Chronic Plan: Continue Rifampin/Omnicef, add Florastor (2) Normocytic anemia Code(s): D64.9 - ANEMIA, UNSPECIFIED Status: Chronic Plan: Stable trend, serial monitoring, no acute blood loss noted (3) Schizophrenia Code(s): F20.9 - SCHIZOPHRENIA, UNSPECIFIED Status: Chronic (4) Chronic pain Code(s): G89.29 - OTHER CHRONIC PAIN Status: Chronic Plan: Continue Oxycodone/[place], 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
[2020-08-11] MEDS ORDERED: Calcium Carbonate 500 MG ChewTAB PO SCH (11:00)
[2020-08-11] MEDS ORDERED: Famotidine 20 MG TAB PO SCH (11:00)
[2020-08-11] MEDS: Calcium Carbonate 500 MG ChewTAB PO SCH (21:34)
[2020-08-11] MEDS: Famotidine 20 MG TAB PO SCH (21:35)
[2020-08-11] MEDS: Nicotine 14 MG PATCH TD SCH (21:40)
[2020-08-12] MEDS: oxyCODONE 5 MG TAB PO PRN ×4 (06:15→19:35)
[2020-08-12] MEDS: Cefdinir 300 MG CAP PO SCH ×2 (08:30→21:25)
[2020-08-12] MEDS: Rifampin 300 MG CAP PO SCH ×2 (08:30→21:26)
[2020-08-12] MEDS: Docusate 100 MG CAP PO SCH ×2 (08:31→21:26)
[2020-08-12] MEDS: Famotidine 20 MG TAB PO SCH ×2 (08:34→21:22)
[2020-08-12] MEDS: Calcium Carbonate 500 MG ChewTAB PO SCH ×2 (08:35→21:22)
[2020-08-12] MEDS: Gabapentin 300 MG CAP PO SCH ×2 (08:35→21:21)
[2020-08-12] MEDS: Meloxicam 7.5 MG TAB PO SCH ×2 (08:36→21:21)
[2020-08-12] MEDS: Morphine 4 MG/ML VIAL SLOW IVP PRN (08:37)
[2020-08-12] MEDS: Mupirocin 2% Ointment 22 GM Tube TOP SCH ×3 (08:37→21:27)
--- NOTE | 2020-08-12 16:55 | PDOC.HOSPP ---
- Subjective Encounter Date: 08/12/20 Encounter Time: 16:50 Subjective: f/u for hidradenitis suppurativa on current Omnicef/Rifampin. Overall feeling better. Still some groin/leg pain when ambulating. - Objective Vital Signs & Weight: Vital Signs (12 hours) Temp Pulse Resp BP BP Pulse Ox 08/12/20 14:51 98.7 F 100 16 111/78 97 08/12/20 10:53 98.3 F 90 16 97/63 99 08/12/20 07:11 98.4 F 114 H 20 113/74 100 Weight Admit Weight 150 lb Weight 159 lb 6.4 oz I&O: 08/11/20 08/12/20 08/13/20 06:59 06:59 06:59 Intake Total 2220 3240 650 Output Total 1600 2350 Balance 620 890 650 Result Diagrams: 08/10/20 09:22 08/09/20 05:37 Additional Labs: Microbiology 08/06/20 19:07 Chest Bacterial Culture - Final Proteus mirabilis Hospitalist ROS - Medication Medications: Active Medications Generic Name Dose Route Start Last Admin Trade Name Freq PRN Reason Stop Dose Admin Calcium Carbonate 1,000 mg 08/11/20 21:00 08/12/20 08:35 Calcium Carbonate 500 Mg Chewtab PO 1,000 mg BID ROHAN Administration Cefdinir 300 mg 08/09/20 21:00 08/12/20 08:30 Cefdinir 300 Mg Cap PO Not Given BID ROHAN Docusate Sodium 100 mg 08/08/20 21:00 08/12/20 08:31 Docusate 100 Mg Cap PO Not Given BID ROHAN Famotidine 20 mg 08/11/20 21:00 08/12/20 08:34 Famotidine 20 Mg Tab PO 20 mg BID RHOAN Administration Gabapentin 600 mg 08/06/20 21:00 08/11/20 21:35 Gabapentin 300 Mg Cap PO 600 mg QPM ROHAN Administration Gabapentin 300 mg 08/11/20 09:00 08/12/20 08:35 Gabapentin 300 Mg Cap PO 300 mg DAILY ROHAN Administration Meloxicam 15 mg 08/06/20 21:00 08/11/20 21:36 Meloxicam 7.5 Mg Tab PO 15 mg HS ROHAN Administration Meloxicam 22.5 mg 08/06/20 09:00 08/12/20 08:36 Meloxicam 7.5 Mg Tab PO 22.5 mg QAM ROHAN Administration Morphine Sulfate 4 mg 08/05/20 20:53 08/12/20 08:37 Morphine 4 Mg/Ml Vial SLOW IVP 4 mg Q4H PRN Administration Pain Mupirocin 0 gm 08/07/20 15:00 08/12/20 15:16 Mupirocin 2% Ointment 22 Gm Tube TOP 1 applic TID ROHAN Administration Nicotine 14 mg 08/05/20 20:45 08/11/20 21:40 Nicotine 14 Mg Patch TD Not Given Q24HR ROHAN Oxycodone HCl 5 mg 08/10/20 14:46 08/12/20 15:16 Oxycodone 5 Mg Tab PO 5 mg Q4H PRN Administration Severe Pain (7-10) Polyethylene Glycol 17 gm 08/08/20 11:42 08/08/20 12:48 Polyethylene Glycol 3350 17 Gm Packet PO 17 gm DAILYPRN PRN Administration Constipation Rifampin 300 mg 08/09/20 10:00 08/12/20 08:30 Rifampin 300 Mg Cap PO Not Given 1000,2200 R[facility] - Exam General Appearance: NAD, awake alert Eye: PERRL, anicteric sclera ENT: normocephalic atraumatic, no oropharyngeal lesions Neck: supple, symmetric, no JVD, no thyromegaly, no lymphadenopathy Heart: RRR, no murmur, no gallops, no rubs, normal peripheral pulses Heart - other findings: S1, S2 Respiratory: CTAB, no wheezes, no rales, no ronchi, normal chest expansion, no tachypnea Gastrointestinal: soft, non-tender, non-distended, normal bowel sounds, no palpable masses Extremities: no cyanosis, no clubbing, no edema Skin: normal turgor, no lesions Neurological: cranial nerve grossly intact, no new deficit Musculoskeletal: normal tone, normal strength, no muscle wasting Psychiatric: normal affect, A&O x 3 Hosp A/P (1) Hidradenitis suppurativa Code(s): L73.2 - HIDRADENITIS SUPPURATIVA Status: Chronic Plan: Continue Rifampin/Omnicef, local wound care, outpatient follow up in [place], [place] at [facility] (2) Normocytic anemia Code(s): D64.9 - ANEMIA, UNSPECIFIED Status: Chronic (3) Schizophrenia Code(s): F20.9 - SCHIZOPHRENIA, UNSPECIFIED Status: Chronic (4) Chronic pain Code(s): G89.29 - OTHER CHRONIC PAIN Status: Chronic Plan: Pain control, continue Gabapentin/Oxycodone/[place] - Plan continue antibiotics, administrative services manager, out of bed/ambulate, DVT proph w/SCDs Stable overall Continue Rifampin/Omnicef OOB/ambulate WCT for local care Outpatient follow up with Dermatology 08/13/20 Pain control Likely d/c 08/13/20
[2020-08-12] MEDS: Nicotine 14 MG PATCH TD SCH (21:19)
[2020-08-13 07:53] VITALS: BP 97/62
[2020-08-13] MEDS: Meloxicam 7.5 MG TAB PO SCH (08:39)
[2020-08-13] MEDS: Gabapentin 300 MG CAP PO SCH (08:39)
[2020-08-13] MEDS: Calcium Carbonate 500 MG ChewTAB PO SCH (08:39)
[2020-08-13] MEDS: Mupirocin 2% Ointment 22 GM Tube TOP SCH (08:40)
[2020-08-13] MEDS: oxyCODONE 5 MG TAB PO PRN (08:44)
[2020-08-13] MEDS: Famotidine 20 MG TAB PO SCH (08:46)
[2020-08-13] MEDS: Cefdinir 300 MG CAP PO SCH (08:46)
[2020-08-13] MEDS: Docusate 100 MG CAP PO SCH (08:46)
--- NOTE | 2020-08-13 09:34 | DIS ---
DATE OF ADMISSION: 08/05/2020 DATE OF DISCHARGE: 08/13/2020 DISCHARGE DIAGNOSES: 1. Hidradenitis suppurativa. 2. Normocytic anemia, chronic. 3. Schizophrenia. 4. Chronic pain secondary to Hidradenitis suppurativa. CONSULTATIONS: None. PERTINENT LABORATORY AND X-RAY FINDINGS: Lactic acid level 2.0. CBC showed a white blood cell count ranging between 18.8 to 24.7, hemoglobin ranged between 9.5 to 10.4, platelet count ranged between 465 to 542. Chest wound culture dated 08/06/2020, positive for Proteus mirabilis, pansensitive. HOSPITAL COURSE: The patient was initially admitted after presenting with worsening pain in his pelvic and gluteus region in the context of Hidradenitis suppurativa. The patient with prior treatment with long-term antibiotic therapy with medical noncompliance as an outpatient. The patient was initially treated with IV fluids and IV antibiotic therapy including vancomycin and cefepime initially. The patient transitioned to rifampin and Omnicef during the remainder of the hospital course, receiving local wound care. The patient was also placed on pain regimen including oxycodone and gabapentin with overall improvement in symptomatic care. The patient clinically stabilized with IV antibiotic therapy and supportive management and ready for discharge on 08/13/2020. I have examined the patient at the time of discharge and discussed followup instructions. The patient verbalizes understanding and agreement and ready for discharge on 08/13/2020. DISCHARGE MEDICATIONS: 1. Clindamycin 300 mg p.o. b.i.d. 2. Rifampin 300 mg p.o. b.i.d. 3. Gabapentin 300 mg p.o. b.i.d., take one tablet p.o. q.a.m. and two tablets p.o. at bedtime. 4. Mobic 7.5 mg, take three tablets p.o. q.a.m. and two tablets p.o. at bedtime. FOLLOWUP: The patient will follow up with Dermatology Service at [facility] in [place], [place], on 08/13/2020. The patient may also follow up with his primary care provider through the [facility] system. CONDITION ON DISCHARGE: Fair. ACTIVITY: Ad-mi. DIET: Regular. CODE STATUS: Full. DISPOSITION: To home on 08/13/2020. TIME SPENT: Total time preparing and coordinating discharge, 32 minutes. Job ID: [id number]
[2020-08-13] MEDS: Rifampin 300 MG CAP PO SCH (09:35)
[2020-08-13 09:36] VITALS: TEMP 99.1
== END 2020-08-13 09:20 | disposition home or self-care (01) | DRG 872 ==
LOC: SURG A 18:23
PROVIDERS: ADMIT Internal Medicine; ATTEND Internal Medicine
DX: A41.9 Sepsis, unspecified organism (principal); L03.317 Cellulitis of buttock; L02.31 Cutaneous abscess of buttock; L73.2 Hidradenitis suppurativa; F20.9 Schizophrenia, unspecified; G89.29 Other chronic pain; F31.9 Bipolar disorder, unspecified; F98.8 Other specified behavioral and emotional disorders with onset usually occurring in childhood and adolescence; I10 Essential (primary) hypertension; B96.4 Proteus (mirabilis) (morganii) as the cause of diseases classified elsewhere; Z91.19 Patient's noncompliance with other medical treatment and regimen; Z84.0 Family history of diseases of the skin and subcutaneous tissue; Z79.1 Long term (current) use of non-steroidal anti-inflammatories (NSAID); Z79.899 Other long term (current) drug therapy
CPT/HCPCS: 36415; 80048; 80053; 80202; 83605; 85025; 85027; 87070; 87077; 87186; 87205; J0692; J2270; J3370; J3490